=== PATIENT | male | born 1990 | race African-American/Black ===

== ENCOUNTER 2018-02-25 04:40 | Emergency (ER) | END 2018-02-25 06:55 | disposition home or self-care (01) ==

== ENCOUNTER 2018-02-27 14:42 | Emergency (ER) | END 2018-02-27 16:53 | disposition home or self-care (01) ==

== ENCOUNTER 2018-03-01 08:18 | Emergency (ER) | END 2018-03-01 09:15 | disposition home or self-care (01) ==